=== PATIENT | female | born 1985 | race Caucasian/White ===

== ENCOUNTER 2018-01-22 13:20 | Emergency (ER) | payer SELFPAY ==
[~2018-01-22] VITALS: Ht 167.6 cm; Wt 98.0 kg
[2018-01-22] MEDS ORDERED: ACETAMINOPHEN 325MG TABLET PO ONE (13:45)
[2018-01-22 15:42] VITALS: BP 135/72
[2018-01-22] MEDS ORDERED: FERR325T6 MT (16:28)
[2018-01-22] MEDS ORDERED: PREN1TAB78 MT (16:28)
== END 2018-01-22 15:46 | disposition home or self-care (01) ==
LOC: ER 13:20
DX: O9A.213 Injury, poisoning and certain other consequences of external causes complicating pregnancy, third trimester (principal); S13.8XXA Sprain of joints and ligaments of other parts of neck, initial encounter; O24.410 Gestational diabetes mellitus in pregnancy, diet controlled; V89.2XXA Person injured in unspecified motor-vehicle accident, traffic, initial encounter; Z3A.30 30 weeks gestation of pregnancy; Y93.89 Activity, other specified; Y92.89 Other specified places as the place of occurrence of the external cause; Y99.8 Other external cause status
CPT/HCPCS: 99283

== ENCOUNTER 2018-01-22 15:55 | Observation (INO) | payer OTHER ==
[~2018-01-22] VITALS: Ht 167.6 cm; Wt 97.5 kg
[2018-01-22] MEDS ORDERED: FERR325T6 MT (16:28)
[2018-01-22] MEDS ORDERED: PREN1TAB78 MT (16:28)
== END 2018-01-22 17:45 | disposition home or self-care (01) ==
LOC: L&D 15:55
PROVIDERS: ADMIT Obstetrics & Gynecology; ATTEND Obstetrics & Gynecology
DX: O26.893 Other specified pregnancy related conditions, third trimester (principal); M54.2 Cervicalgia; Z3A.30 30 weeks gestation of pregnancy
CPT/HCPCS: 76815; 76818; 99281; G0378